=== PATIENT | female | born 2000 ===

== ENCOUNTER 2025-02-19 09:30 | Outpatient (AMB) | payer OTHER, SELFPAY ==
--- NOTE | 2025-02-19 09:05 | A.OFFVIS_ITS ---
Vital Signs 02/19/25 09:38 Height 5 ft 5 in Weight 184 lb BMI 30.6 BP 102/68 Blood Pressure Location Rt brachial Position Sitting Pulse 89 Pulse Source Pulse Oximeter Pulse Oximetry (%) 97 Oxygen Delivery Method Room Air Intake Visit Reasons: Shortness of Breath Allergies No Known Allergies Allergy (Verified 02/19/25 09:40) HPI HPI Shortness of Breath: Details: Ella is a pleasant 24 year old female, never smoker, with no significant past medical history. She was referred by PCP for pulmonary evaluation presenting with dyspnea and chronic cough. The dyspnea and cough have been ongoing for several years, initially noticed at the age of 16. She was evaluated by an ENT specialist who attributed her symptoms to allergies without conducting allergy testing. The patient reports that her cough is often triggered by gastroesophageal reflux, for which she occasionally takes Tums. She experiences a dry cough, which can be exacerbated by lying down or after cleaning her ears. She denies any history of asthma, smoking, or significant secondhand smoke exposure. Her family history is negative for asthma, and she has not experienced recurrent respiratory infections. The patient had a chest x-ray in November, which showed no abnormalities. She has had COVID-19 twice in 2020, with minimal sy mptoms, and reports that her respiratory symptoms have persisted since then. [facility] Social History (Updated 02/19/25 @ 09:40 by Jania Johnson [facility]) Patient Tobacco Use Status: Never used Tobacco Review of Systems Const Denies chills, Denies excessive sweating, Denies fever(s), Denies headache(s) and Denies night sweats Eyes Denies dry eyes, Denies irritation and Denies itchy eyes ENT Reports Normal hearing present, Denies headache(s), Denies nasal congestion, Denies nasal discharge, Denies post nasal drip and Denies sore throat Card Denies chest pain, Denies chest pain at rest, Denies chest pain with activity, Denies claudication, Denies leg edema, Denies orthopnea and Denies paroxysmal nocturnal dyspnea Resp Denies chest congestion, Denies excessive phlegm production, Denies pain on inspiration, Denies pain with cough, Denies stridor and Denies wheezing Musc Denies myalgias Neuro Reports Normal hearing present and Denies headache(s) Endo Denies excessive sweating Neto/Lymph Denies lymphadenopathy Aller/Immun Denies itchy eyes, Denies seasonal rhinorrhea and Denies wheezing Physical Exam Vital Signs: Last Vital Signs Pulse 89 02/19/25 09:38 BP 102/68 02/19/25 09:38 Pulse Ox 97 02/19/25 09:38 Oxygen Delivery Method Room Air 02/19/25 09:38 BMI result Body Mass Index 30.6 Const General: cooperative, healthy appearing, comfortable, no acute distress, well developed and alert Orientation/consciousness: patient oriented x3 Limitations: no limitations HEENT Head: Yes normal to inspection, Yes normocephalic and Yes atraumatic Ears: hearing grossly normal bilaterally and external ears normal Eyes General: appearance normal, both eyes and all related structures Eyelids: Yes eyelids normal Sclerae: sclerae normal EOM: EOMs intact bilaterally Neck Neck: Yes normal visual inspection and Yes no lymphadenopathy Lymphatic: no lymphadenopathy noted Chest Chest palpation & inspection: normal inspection of the chest Resp Effort & Inspection: normal respiratory effort, able to speak in complete sentences, no audible wheezes, no cough, no stridor, not tachypneic, no tripod positioning and no use of accessory muscles Auscultation: clear to auscultation bilaterally Cardio Jugular venous distension: no JVD Rate: regular rate Rhythm: regular rhythm Skin Other: warm, dry General skin exam: no rashes or lesions noted Neuro General: patient oriented x3 Cranial nerves: Yes Normal hearing present Cognition (Neuro): normal cognition Gait exam (Neuro): Normal gait present Extrem General: Yes normal to inspection, Yes capillary refill normal, Yes no clubbing, cyanosis or edema and Yes no pedal edema Psych Appearance: grossly normal and well kempt Speech and movement: Normal speech and movement present and Clear speech present Affect: normal affect Attitude: cooperative Thought process: Normal thought process present Thought content: Normal thought content present Insight: Good insight present (Psych) Judgement: Good judgement present (Psych) Assessment & Plan Assessment & Plan (1) Cough: Code(s): R05.9 - Cough, unspecified Category: Medical (2) Dyspnea on exertion: Code(s): R06.09 - Other forms of dyspnea Category: Medical Plan Will send Ella for PFT to evaluate for possible asthma, as her symptoms suggest this condition. Additionally, the patient is advised to manage her gastroesophageal reflux by avoiding food three hours before bedtime and elevating her head while sleeping. She should also avoid foods that exacerbate reflux, such as acidic foods, chocolate, and caffeine. Prior CXR unremarkable. All questions were answered and patient is in agreement of plan. Will follow up in 6-8 weeks to review the results of the PFT and discuss further management options. Orders: Orders PFT pulmonary function test Today R05.9 - Cough, unspecified Coding Level of Care Code New Pt Level 4 (39364) Diagnoses Cough R05.9 Dyspnea on exertion R06.09
[2025-02-19 09:38] VITALS: BP 102/68; PULSE 89; O2SAT 97; BMI 30.6
--- OUTSIDE RECORDS SUMMARY | 2025-02-19 10:05 | XMS_ITS | Encounter Summary ---
Author Organization [facility] Address [address] [place] [address] Phone Care Team Providers Care Therapeutic Mentor Name Role Phone iNmesh Velazquez MD Primary Care Provider [phone] Encounter Details Date Type Department Care Team (Late st Contact Info) Description 03/16/2017 Conversion Encounter [facility] - [address], [address] [place] [address] Nimesh Velazquez MD [address] [place] [address] Social History Tobacco Use Types Packs/Day Years Used Date Smoking Tobacco: Never Assessed Comments Unknown Sex and Gender Information Value Date Recorded Sex Assigned at Not on file Legal Sex Female 5:40 PM EST Gender Identity Female 10/12/2020 11:59 PM EST Sexual Orientation Not on file documented as of this encounter Plan of Treatment Not on file documented as of this encounter Visit Diagnoses Not on filedocumented in this encounter Care Teams Therapeutic Mentor Relationship Specialty Start Date End Date Nimesh Velazquez MD [address] [place] [address] PCP - General 09/28/16 03/15/23 documented as of this encounter
--- OUTSIDE RECORDS SUMMARY | 2025-02-19 10:05 | XMS_ITS | Data Portability ---
Author Organization [place] [facility], Allergy Address [address] [address] Care Team Providers Care Sorter Lumber Straightener Name Role Phone ANH PETERSEN Primary Care Provider [phone] Assessment Encounter Date Assessment Date Assessment LastModified by Organization Details LastModified Time 11/22/2024 11/22/2024 24-year-old female presents today for swollen tonsils and she describes also symptoms of acid reflux, nasal congestion, some dyspnea in the throat. Tonsils are not obstructive today, 2+ cryptic. I did perform flexible laryngoscopy to more thoroughly evaluate her throat symptoms which showed some mild arytenoid erythema which is nonspecific but can be seen with LPR and allergies. Given the nasal congestion, I did recommend trying an antihistamine and nasal steroid which may help with the tonsil symptoms as well I also recommended salt water gargles. [email or web address] Not available 11/24/2024 17:08:53 Plan of Treatment Reminders Order Date Submit Date Provider Last Modified By Organization Details Last Modified Time Details Appointments Establish ed 15 2024 02:00P Melodie RODRIGUEZ MD Not available Not available Not available Lab None recorded. Referral None recorded. Procedures None recorded. Surgeries None recorded. Imaging None recorded. Medication Orders Flonase Allergy Relief 50 mcg/actua tion nasal spray,didi pension 2024 025 [facility] #[id number], [address] [place], [place], [id number], 11/22/2024 15:03:55 Claritin 10 mg tablet 2024 025 [facility] #[id number], [address], [place], [id number], 11/22/2024 15:03:57 Patient TargetsNo targets recorded. Patient InstructionsNo instructions recorded. Reason for Referral None Reported. Problems Name Problem SNOMED Code Status Onset Date Resolution Date Notes Provider Name and Address Organization Details Recorded Time Allergic rhinitis 46157291 Active 2024 JR RODRIGUEZ MD [address] [place] [address],[place] [address], [place], [address], [facility] - [facility] 15:03:04 Chronic tonsillitis 69540950 Active 2024 JR RODRIGUEZ MD [address] [place] [address], [place], [address], [facility] - [facility] 17:07:32 Gastroesophage al reflux disease without esophagitis 903025991 Active 2024 JR RODRIGUEZ MD [address] [place] [address],[place] [address], [facility] [place], [phone], [facility] [place] 17:07:39 Problem Notes None recorded. Procedures Surgical History Date Name Laterality Status Provider Name and Address Organization Details Recorded Time 11/23/19 25 Fiberoptic Laryngoscopy (Comprehensive) completed JR RODRIGUEZ MD [address] [place] [address],[address], [address], [facility] - [facility] [place] 11/24/2024 17:07:21 Imaging Results None recorded. Procedure Notes None recorded. Medical Equipment None Reported. Allergies No known drug allergies Medications Name Sig Start Date Stop Date Status Note LastModified by Organization Details LastModified Time Claritin 10 mg tablet Take 1 tablet every day by oral route for 30 days. 025 active Not Available Not Available Not Avai lable fluticasone propionate 50 mcg/actuation nasal spray,suspens ion SHAKE LIQUID AND USE 2 SPRAYS IN EACH NOSTRIL EVERY DAY active Not Available Not Available No t Available Vitals Date Recorded Body height Body mass index (BMI) Body weight Provider Name and Address Organization Details Last Updated DateTime 11/22/2024 165.1 cm 30 kg/m2 21616.63 g Kassandra Cardenas [facility] [place] 11/22/2024 14:29:28 Social History None recorded. Functional Status None recorded. Mental Status None recorded. Family History Nothing Reported. Medical History Condition Response Depression Y Anxiety Y Gynecological HistoryNo gynecological history recorded. Obstetrics History GPAL:G 0 P 0 0 0 0 Past Encounters Encounter ID Performer Location Encounter Start Date Encounter Closed Date Diagnosis/Indication Diagnosis SNOMED-CT Code Diagnosis ICD10 Code Diagnosis Note [id number] JR RODRIGUEZ MD [facility] on [address] [place] [address] 11/22/2024 14:27:46 11/22/2024 15:06:24 Allergic rhinitis 45592203 J30.9 Chronic tonsillitis 9097 9004 J35.01 Gastroesop hageal reflux disease without esophagitis 468330900 K21.9 Health Concerns Section Related Observation LastModified by Organization Detai ls LastModified Time None Recorded Concern Status LastModified by Organization Details LastModified Time None Recorded Advance Directives Directive None Recorded Payers Insurance Date Sequence Insurance Name Policy Number Policy Marroquin Covered Member ID Marroquin Member ID Guarantor Name 11/22/2024 1 [facility] INDEMNITY PLAN (PPO) [id number] 1 Randolph Juarez Salomao [id number] Jr Cervantes Notes Date Note Type Note Provider Name and Address Organization Details Recorded Time 11/22/2024 text/html 24 yo F presents forswollen tonsils, tonsil stones - no interventioncan get some trouble breathing after eating thick foods, or after exercising some acid reflux, no meds airflow ok through the nose today some congestion, no allergy testingno ANNAMARIE testingasthma testing negative 2016 no sinus infectionsstrep x 1 blood testing cholesterol high JR RODRIGUEZ MD [address] [place] [address],[place] [address], [place], [address], [place] [facility] 11/24/2024 17:09:18 OBGyn Episode No OBEpisode recorded.
== END 2025-02-19 10:00 | disposition home or self-care (01) ==
LOC: HO.HPSW 09:31
PROVIDERS: PCP Internal Medicine; Referring Provider Nurse Practitioner; Visit Provider Nurse Practitioner Family
DX: R05.9 Cough, unspecified (principal); R06.09 Other forms of dyspnea
CPT/HCPCS: 99204

== ENCOUNTER 2025-04-30 07:51 | Outpatient (REF) | payer OTHER, SELFPAY ==
--- OUTSIDE RECORDS SUMMARY | 2025-04-30 07:53 | XMS_ITS | Encounter Summary ---
Author Organization [facility] Address [address] [place] [address] Phone Care Team Providers Care Machine Plug Shaper Name Role Phone Nimesh Velazquez MD Primary Care Provider [phone] Encounter Details Date Type Department Care Team (Late st Contact Info) Description 03/16/2017 Conversion Encounter [facility] - [address], [address] [place] [address] Nimesh Velazquez MD [address] [place] [address] Social History Tobacco Use Types Packs/Day Years [...] on filedocumented in this encounter Care Teams Machine Plug Shaper Relationship Specialty Start Date End Date Nimesh Velazquez MD [address] [place] [address] PCP - General 09/28/16 03/15/23 documented as of this encounter
--- OUTSIDE RECORDS SUMMARY | 2025-04-30 07:53 | XMS_ITS | Clinical Summary ---
Author Organization [facility] Address [address] [place] [phone] Phone Care Team Providers Care Patternmaker Name Role Phone Unavailable Primary Care Provider Unavailabl e Allergies No known active allergies Medications Adderall XR 15 MG 24 hr capsuleIndications :ADHD (attention deficit hyperactivity disorder), combined type Take 1 capsule (15 mg total) by mouth every morning. 30 capsule 1 Active polyethylene glycol (MiraLax) 17 GM/SCOOP powderIndications: External hemorrhoid Take 17 g by mouth daily. Stir and dissolve powder into 4 to 8 ounces of beverage and then drink. 500 g 3 1 Active tretinoin 0.025 % creamIndications:A cne vulgaris Apply topically nightly. 45 g 2 2 Active Active Problems Problem Noted Date Diagnosed Date Anxiety 10/13/2020 Assessment & Plan (10/13/2020 2:51 PM EST): Having more anxiety and some depression . Not in crisis. Will refer to . Had warm handoff External hemorrhoid 10/13/2020 Assessment & Plan (10/13/2020 2:15 PM EST): If not improving with miralax and triamcinolone will refer to surgery Chronic TMJ pain 08/12/2020 Assessment & Plan (10/13/2020 2:05 PM EST): Has been bothering her and still is will see an oral surgeon Assessment & Plan (08/12/2020 2:46 PM EST): Right sided and had an episode of muscle cramping from stretching that is improved. Will refer to oral surgery for further eval and tx. TMJ click 07/15/2020 Assessment & Plan (07/15/2020 11:29 AM EST): Had one painful episode. Did see dentist. Will try soft diet but if pain returns will refer to oral surgeon. Acne vulgaris 03/23/2018 Assessment & Plan (03/23/2018 11:46 AM EDT): See photo looking for some improvement will cont with wash in shower and add retin a Other developmental disorders of scholastic skil ls 12/23/2015 Overview (03/06/2018): IEP for math Attention-deficit hyperactivity disorder, combin ed type 05/20/2015 Assessment & Plan (10/13/2020 2:52 PM EST): Doing well with adderall xr 15 mg. No side effects happy with the results. Will con't This visit will count also count as one of the medication recheck appointments. Will have f/u in 3 mos Assessment & Plan (08/12/2020 2:47 PM EST): Doing well with adderall and using it daily Assessment & Plan (07/15/2020 11:28 AM EST): Doing well with adderall xr 15 mg no side effects. Will con't at this dose Assessment & Plan (11/07/2018 4:51 PM EDT): Doing very well with current medication adderall xr 15 mg no side effects will cont at current dose Assessment & Plan (05/09/2018 2:26 PM EDT): Doing well with adderall xr 15 mg . This appears to be working well. Will not make any changes. Assessment & Plan (03/23/2018 11:46 AM EDT): Doing well with current medication for school. There might need to be an adjustment once she starts at [employer] [employer] Resolved Problems Problem Noted Date Diagnosed Date Resolved Date Numbness and tingling in left hand 11/30/2018 10/13/2020 Assessment & Plan (11/30/2018 7:09 PM EDT): Unclear etiology. Sounds like there could be some chronic nerve issue. Will refer to ortho. Rest in the mean time Immunizations Immunization Administration Dates Next Due DTaP 10/08/2003, 1,04/08/2000,02/18,1999 H1N1 06/28/2009 HPV, Quadrivalent 12/13/2013,02/16/2013,12/13/19 13 Hep A 03/02/2019 Hep A, Adult 03/02/2019 Hep B, ped/adol 07/08/2000,1999,1999 Hib (PRP-T) 01/09/2001, 0,02/19/2000,12/14 IPV 10/08/2003, 1,02/19/2000,12/14 Influenza 05/08/2009, 8,06/13/2007,06/02 Influenza, injectable, quadr ivalent, preservative free 05/09/2018,05/20/2015,05/24/2014,09/27 Influenza, injectable, trivalent 07/08/2020,05/08 Influenza, intranasal, trivalent 05/13/2011,05/09 MMR 10/13/2004,01/09/2001 Meningococcal Conj (Menactra) MCV4P 01/14/2017,0 12/07/2011 Pneumococcal Conjugate 01/09/2001,2000,07/08/2000,04/08 Tdap 09/27/2019,12/07/2011 Varicella 11/02/2007,10/10/2000 Family History Relation Name Status Comments Father Alive Father: ear inf ections, hearing loss, Cholesterol or lipid elevation Father's Brother Paternal Un ingrid: Cholesterol or lipid elevation Maternal Grandfather Mat Gr- GFather: type 2 diabetes, catarac Maternal Grandmother Mat GMo ther: thyroid disease Mother Alive Mother: allergi es Other 1 allergies, , le arning disability, dyslexia, or Autism Other 2 Cholesterol or lipid elevation Other 3 hypertension, C holesterol or lipid elevation Other 4 hypertension, C holesterol or lipid elevation Other 5 skin cancer, ty pe 2 diabetes Other 6 thyroid disease Other 7 type 2 diabetes Other 8 type 2 diabetes , allergies Other 9 type 2 diabetes , catarac Other 10 Alive allergies Other 11 Alive ear infections, hearing loss, Cholesterol or lipid elevation Paternal Grandfather Pat GFa ther: hypertension, Cholesterol or lipid elevation Paternal Grandmother Pat Gr- GMother: type 2 diabetes Social History Tobacco Use Types Packs/Day Years Used Date Smoking Tobacco: Never Smokeless Tobacco: Never Alcohol Use Standard Drinks/Week Comments No 0 (1 standard drink = 0.6 oz pur e alcohol) Hunger/Food Answer Date Recorded In the last 12 months, did y ou or your family ever eat less than you felt you should because there wasn't enough money for food? No 10/13/2020 Stable Housing Answer Date Recorded Are you worried that in the next 2 months you may not have stable housing? No 10/13/2020 Transportation Concerns Answer Date Rec orded In the last 12 months, have you or your family ever had to go without healthcare because you didn't have a way to get there? No 10/13/2020 Hazards in Home Answer Date Recorded Think about the place you li ve. Do you have problems with any of the following? Pests (mice or roaches), mold, no/not working smoke detectors, water leaks, no window guards. No 2020 Financing Utilities Answer Date Recorde d In the last 12 months, has t he electric, gas, oil, or water [employer] threatened to shut off your services in your home? No 10/13/2020 Safety at Home Answer Date Recorded Are you or your family worried about feeling saf e in your home? No 10/13/2020 Outside Support Answer Date Recorded Do you feel that you need mo re support from other people or programs to help you care for yourself or your family? No 10/13/2020 Understanding Health Concerns Answer Da te Recorded Do you need help understandi ng your or your child's healthcare needs (diagnosis, medications, plan, etc.)? No 10/13/2020 Financing Health Concerns Answer Date R ecorded In the last 12 months, was t here a time when your child needed to see a doctor or get medications or supplies but could not because of cost? No 10/13/2020 Missing School or Work Answer Date Brodie rded Did you or your child miss s chool or work because of a health problem that could have been avoided? No 10/13/2020 Comments No Sex and Gender Information Value Date Recorded Sex Assigned at Not on file Legal Sex Female 5:40 PM EST Gender Identity Female 10/12/2020 11:59 PM EST Sexual Orientation Not on file Last Filed Vital Signs Vital Sign Reading Time Taken Comments Blood Pressure 129/75 10/13/2020 1:36 PM EST Pulse 103 10/13/2020 1:36 PM EST Temperature 36.6 C (97.8 F) 08/12/2020 2:29 PM EST Respiratory Rate 24 03/09/2019 2:35 PM EDT Oxygen Saturation 99% 03/09/2019 2:35 PM EDT Inhaled Oxygen Concentration - - Weight 61.9 kg (136 lb 6.4 oz) 10/13/2020 1:36 P M EST Height 165.7 cm (5' 5.25 ) 10/13/2020 1:36 PM ES T Body Mass Index 22.52 10/13/2020 1:36 PM EST Plan of Treatment Health Maintenance Due Date Last Done Comments Influenza Vaccines (#1) 2025 07/08/20, 05/09/2018, 05/20/2015, Additional history exists COVID-19 Vaccine ( season) 2025 DTaP,Tdap,and Td Vaccines (8 - Td or Tdap) 09/27/2029 09/27/2019, 12/07/2011, 10/08/2003, Additional history exists Hepatitis B Vaccines Completed 07/08/2000, 1999, 1999 HIB Vaccines Completed 01/09/2001, 08/1999, 02/19/2000, Additional history exists Pneumococcal Vaccine Completed 01/09/2001, 10/10/2000, 07/08/2000, Additional history exists IPV Vaccines Completed 10/08/2003, 12/2000, 02/19/2000, Additional history exists MMR Vaccines Completed 10/13/2004, 01/09/2001 Varicella Vaccines Completed 11/02/2007, 10/10/2000 HPV Vaccines Completed 12/13/2013, 02/05, 12/12/2012 Meningococcal Vaccine Completed 01/14/2017, 012 Hepatitis A Vaccines Aged Out 03/02/2019, 03/02/20 19 No longer eligible based on patient's age to complete this topic Men B Vaccine Aged Out No longer elig ible based on patient's age to complete this topic Procedures * Due to [place] law, this organization might not be sharing sensitive test results. Procedure Name Priority Date/Time Associated Diagnosis Comments CHLAMYDIA TRACHOMATIS, AMPLIFIED Routine 10/13/2020 2:45 PM EST Screening for chlamydial disease from Last 3 Months or Most Recently Relevant to Health Maintenance Results * Due to [place] law, this organization might not be sharing sensitive test results. * Chlamydia trachomatis, Amplified (10/13/2020 2:45 PM EST) Chlamydia trachomatis RNA, TMA Not Detected Not Detected 10/14/2020 9:14 AM EST [facility] Urine (Urine, Random (not clean void)) 10/13/2020 2:45 PM EST 10/13/2020 3:44 PM EST us Nimesh Velazquez MD LAB MICROBIOLOGY - GENERAL OR DERABLES Final Result [facility] from Last 3 Months or Most Recently Relevant to Health Maintenance
--- OUTSIDE RECORDS SUMMARY | 2025-04-30 07:53 | XMS_ITS | Clinical Summary ---
Author Organization [facility] Address [address] [place], [place] [id number] Phone Care Team Providers Care Microfilm Technician Name Role Phone Nimesh Velazquez MD Primary Care Provider [phone] Allergies No known active allergies Medications tretinoin (RETIN-A) 0.025 % cream Apply topically. 10/13/2020 Active Immunizations Immunization Administration Dates Next Due DTaP 10/08/2003, 1,04/08/2000,02/18,1999 [id number] FORMULATION 06/28/2009 HPV,quadrivalent 12/13/2013,02/16/2013, 3 Hepatitis A, Adult 03/02/2019 Hepatitis B 07/08/2000,1999,1999 Hib,PRP-T 01/09/2001, 0,02/19/2000,12/14 INFLUENZA, SPLIT VIRUS, TRIV ALENT W/ PRESERVATIVE IM 07/08/2020,05/18/2012 IPV 10/08/2003, 1,02/19/2000,12/14 Influenza Quadrivalent Prese rvative Free IM 05/09/2018,05/20/2015,05/24/2014,09/27 Influenza quadrivalent nasal 05/13/2011,05/28/20 10 Influenza, Unspecified Formulation 05/08,06/14/2008,06/13/2007,06/02 MMR 10/13/2004,01/09/2001 Meningococcal MCV4P 01/14/2017,12/07/2011 Pneumococcal conjugate, PCV 7 01/09/2001 ,10/10/2000,07/08/2000,04/08 Tdap 09/27/2019,12/07/2011 Varicella 11/02/2007,10/10/2000 Family History Medical History Relation Comments Sleep apnea Father Skin cancer Mother Relation Status Comments Father Mother Social History Tobacco Use Types Packs/Day Years Used Date Smoking Tobacco: Never Smokeless Tobacco: Never Alcohol Use Standard Drinks/Week Comments Not Currently 0 (1 standard drink = 0.6 oz pur e alcohol) Education Answer Date Recorded Are you interested in more education? Not on robert e 12/03/2022 Are you concerned about learning? Not on file 12/03/2022 No 12/03/2022 No 12/03/2022 Digital Access Answer Date Recorded No 12/31/2022 No 12/31/2022 No 12/31/2022 Reliable internet access at home? Not on file 12/31/2022 Device with a working camera? Not on file Comments No Sex and Gender Information Value Date Recorded Sex Assigned at Female 09/27/2019 9:52 PM EST Legal Sex Female 8:47 PM EDT Gender Identity Female 09/27/2019 9:52 PM EST Sexual Orientation Straight 09/27/2019 9: 52 PM EST Last Filed Vital Signs Vital Sign Reading Time Taken Comments Blood Pressure 104/66 05/31/2022 9:21 AM EDT Pulse 79 09/27/2019 10:59 PM EST Temperature 36.5 C (97.7 F) 09/27/2019 10:59 PM EST Respiratory Rate 16 09/27/2019 10:59 PM EST Oxygen Saturation 99% 09/27/2019 10:59 PM EST Inhaled Oxygen Concentration - - Weight 63 kg (139 lb) 04/06/2021 2:05 PM EDT Height 165.1 cm (5' 5 ) 04/06/2021 2:05 PM EDT Body Mass Index 23.13 04/06/2021 2:05 PM EDT Plan of Treatment Health Maintenance Due Date Last Done Comments DEPRESSION SCREENING 2011 SMOKING Hx and SMOKELESS TOBACCO SCREENING 2012 HEPATITIS C SCREENING 2017 HIV ONE-TIME SCREENING (18-65 YEARS) 2017 PAP SMEAR 04/06/2024 04/06/2021 INFLUENZA VACCINE (#1) 2025 0, 05/09/2018, 05/20/2015, Additional history exists COVID-19 VACCINE ( season) 2025 Adult Td,Tdap Booster 09/27/2029 09/27/2019, 012 HIB VACCINES Completed 01/09/2001, 08/1999, 02/19/2000, Additional history exists PNEUMOCOCCAL VACCINES (0-49 years) Aged Out 01/09/2001, 10/10/2000, 07/08/2000, Additional history exists No longer eligible based on patient's age to complete this topic HPV VACCINES Completed 12/13/2013, 02/05, 12/12/2012 MENINGOCOCCAL VACCINES (ACWY) Completed 01/14/2017, 12/07/2011 HEPATITIS A VACCINES Aged Out 03/02/2019 No long er eligible based on patient's age to complete this topic MENINGOCOCCAL VACCINES (B) Aged Out N o longer eligible based on patient's age to complete this topic Medical Devices Not on file Procedures Procedure Name Priority Date/Time Associated Diagnosis Comments PAP TEST Routine 04/06/2021 12:00 AM EDT from Last 3 Months or Most Recently Relevant to Health Maintenance Results * Pap Smear (04/06/2021 12:00 AM EDT) 04/06/2021 04/07/2021 9:2 3 AM EDT Narrative SEE NARRATIVE - 04/08/2021 11:32 AM EDT [address] [address] Dietetic Technician Registered: Kassandra Yanez MD BESSEMER BOTTOM MAKER Cytology Report FINAL DIAGNOSIS A. PAP SMEAR (SUREPATH) CE: SPECIMEN ADEQUACY: Satisfactory for evaluation; transformation zone present. INTERPRETATION: NEGATIVE FOR INTRAEPITHELIAL LESION OR MALIGNANCY. Electronically Signed Out By: SARAH Stuart(ASCP) The Pap test is a screening test primarily for squamous cancers and precursors and has associated false-negative and false-positive results. New technologies such as liquid-based preparations may decrease but will not eliminate all false-negative results. Regular sampling and follow-up of unexplained clinical signs and symptoms are recommended to minimize false negative results. CLINICAL HISTORY Date of Last Menstrual Period: 03-31-2021 Other Clinical Conditions: Screening Pap SPECIMEN SOURCE A: PAP SMEAR (SUREPATH) CE Patient Name: JR MARCIAL : 2000 (Age: 20) Sex: F Institution: [facility] Location: [facility] Date of Collection: 04/06/2021 Date of Reported: 04/08/2021 11:32 Results to: Berta Smith MSN, BS Berta Smith [employer] CYTOLOGY ORDERABLES Final Resu lt SEE NARRATIVE from Last 3 Months or Most Recently Relevant to Health Maintenance Insurance [employer] [facility] [employer] [facility] Care Teams Microfilm Technician Relationship Specialty Start Date End Date Nimesh Velazquez MD [address] [place] [address], [address] [place] [address] [email or web address] PCP - General Pediatrics 01/04/19 Additional Source Comments The information contained in this document represents components of the legal health record. It is not the complete legal health record.[facility]
--- NOTE | 2025-04-30 08:00 | PFT_ITS ---
Flows: FEV1: 97 % of predicted at 3.27 L FVC: 103 % of predicted at 4.07 L FEV1/FVC: 81 % Bronchodilator response: Absent Volumes: Total lung capacity: 95 % of predicted at 4.99 L Residual volume: 88 % of predicted at 1.02 L Slow vital capacity: 99 % of predicted at 3.97 L Expiratory reserve volume: 92 % of predicted at 1.23 L Diffusion capacity: Normal Impression: No obstructive or restrictive ventilatory defect. No bronchodilator response. Pulmonary function [facility]. [facility]
[2025-04-30 08:37] VITALS: PULSE 79; O2SAT 98
== END 2025-04-30 07:52 | disposition home or self-care (01) ==
LOC: HO.RESP 07:51
PROVIDERS: Visit Provider Nurse Practitioner Family
DX: R05.9 Cough, unspecified (principal)
CPT/HCPCS: 94010; 94640; 94727; 94729

== ENCOUNTER → 2025-04-30 08:00 | Outpatient (BNV) | payer OTHER, SELFPAY | PROVIDERS: Visit Provider Internal Medicine Pulmonary Disease | DX: R05.9 Cough, unspecified (principal) | CPT/HCPCS: 94060; 94727; 94729 ==

== ENCOUNTER 2025-05-08 11:42 | Outpatient (AMB) | payer OTHER, SELFPAY ==
--- NOTE | 2025-05-08 11:45 | MHC.OFFVIS ---
Vital Signs 05/08/25 11:46 Height 5 ft 5 in Weight 190 lb 2 oz BMI 31.6 BP 98/62 Blood Pressure Location Rt brachial Position Sitting Pulse 81 Pulse Source Pulse Oximeter Pulse Oximetry (%) 97 Oxygen Delivery Method Room Air Intake Visit Reasons: Shortness of breath Allergies No Known Allergies Allergy (Verified 05/08/25 11:50) HPI HPI Shortness of breath: Details: Ella is a pleasant 24 year old female, never smoker, with no significant past medical history. She was initially referred by PCP for pulmonary evaluation presenting with dyspnea and chronic cough. The dyspnea and cough have been ongoing for several years, initially noticed at the age of 16. The patient reports that her cough is often triggered by gastroesophageal reflux, for which she occasionally takes Tums. Has not had further work up through GI, although states she has no discussed with PCP. Encouraged to discuss with PCP. She experiences a dry cough, which can be exacerbated by lying down or after cleaning her ears. She has had COVID-19 twice in 2020, with minimal symptoms, and reports that her respiratory symptoms have persisted since then. Today she continues with dyspnea, cough and wheezing with no triggering factors other than activity. Today she presents to review PFT results. [facility]LY [facility] Social History Patient Tobacco Use Status: Never used Tobacco Review of Systems Const Denies chills, Denies excessive sweating, Denies fever(s), Denies headache(s) and Denies night sweats Eyes Denies dry eyes, Denies irritation and Denies itchy eyes ENT Reports Normal hearing present, Denies headache(s), Denies nasal congestion, Denies nasal discharge, Denies post nasal drip and Denies sore throat Card Denies chest pain, Denies chest pain at rest, Denies chest pain with activity, Denies claudication, Denies leg edema, Reports dyspnea on exertion, Denies orthopnea and Denies paroxysmal nocturnal dyspnea Resp Denies change in phlegm color, Denies chest congestion, Reports cough, Denies hemoptysis, Denies excessive phlegm production, Denies pain on inspiration, Denies pain with cough, Reports dyspnea on exertion, Denies stridor and Reports wheezing Musc Denies myalgias Neuro Reports Normal hearing present and Denies headache(s) Endo Denies excessive sweating Neto/Lymph Denies lymphadenopathy Aller/Immun Denies itchy eyes, Denies seasonal rhinorrhea and Reports wheezing Physical Exam Vital Signs: Last Vital Signs Pulse 81 05/08/25 11:46 BP 98/62 05/08/25 11:46 Pulse Ox 97 05/08/25 11:46 Oxygen Delivery Method Room Air 05/08/25 11:46 BMI result Body Mass Index 31.6 Const General: cooperative, healthy appearing, comfortable, no acute distress, well developed and alert Nutritional Appearance: obese Orientation/consciousness: patient oriented x3 Limitations: no limitations HEENT Head: Yes normal to inspection, Yes normocephalic and Yes atraumatic Ears: hearing grossly normal bilaterally and external ears normal Eyes General: appearance normal, both eyes and all related structures Eyelids: Yes eyelids normal Sclerae: sclerae normal EOM: EOMs intact bilaterally Neck Neck: Yes normal visual inspection and Yes no lymphadenopathy Lymphatic: no lymphadenopathy noted Chest Chest palpation & inspection: normal inspection of the chest Resp Effort & Inspection: normal respiratory effort, able to speak in complete sentences, no audible wheezes, no cough, no stridor, not tachypneic, no tripod positioning and no use of accessory muscles Auscultation: diminished lung sounds Cardio Jugular venous distension: no JVD Rate: regular rate Rhythm: regular rhythm Skin Other: warm, dry General skin exam: no rashes or lesions noted Neuro General: patient oriented x3 Cranial nerves: Yes Normal hearing present Cognition (Neuro): normal cognition Gait exam (Neuro): Normal gait present Extrem General: Yes normal to inspection, Yes capillary refill normal, Yes no clubbing, cyanosis or edema and Yes no pedal edema Psych Appearance: grossly normal and well kempt Speech and movement: Normal speech and movement present and Clear speech present Affect: normal affect Attitude: cooperative Thought process: Normal thought process present Thought content: Normal thought content present Insight: Good insight present (Psych) Judgement: Good judgement present (Psych) Assessment & Plan Assessment & Plan (1) Asthma: Code(s): J45.909 - Unspecified asthma, uncomplicated Category: Medical (2) Cough: Code(s): R05.9 - Cough, unspecified Category: Medical (3) Dyspnea on exertion: Code(s): R06.09 - Other forms of dyspnea Category: Medical Plan Reviewed PFT which did not reveal any obstructive or restrictive defect however slight decrease in FEV1 79% and mild response to bronchodilators in small to medium airways, 11% improvement. Symptoms as well as decreased aeration on respiratory exam, suggestive of asthma with continued dyspnea, wheezing and dry cough, will trial albuterol MDI. Again advised to manage her gastroesophageal reflux by avoiding food three hours before bedtime and elevating her head while sleeping. She should also avoid foods that exacerbate reflux, such as acidic foods, chocolate, and caffeine. Prior CXR unremarkable if symptoms persist may need to consider chest CT to assess for underlying parenchymal conditions. All questions were answered and patient is in agreement of plan. Will follow up in 6-8 weeks or sooner if needed. Medications: New albuterol sulfate 90 mcg/actuation (Ventolin HFA) 1 inh inhalation QID 1 ea 2RF Coding Level of Care Code Est Pt Level 4 (47255) Diagnoses Asthma J45.909 Cough R05.9 Dyspnea on exertion R06.09
[2025-05-08 11:46] VITALS: BP 98/62; PULSE 81; O2SAT 97; BMI 31.6
--- OUTSIDE RECORDS SUMMARY | 2025-05-08 13:18 | XMS_ITS | Clinical Summary ---
Author Organization [facility] Address [address] [place] [address] Phone Care Team Providers Care Putty Glazer Name Role Phone Unavailable Primary Care Provider [...] be an adjustment once she starts at [facility] Resolved Problems Problem Noted Date Diagnosed Date [...] t he electric, gas, oil, or water [employer] threatened to shut off your services in [...] complete this topic Procedures * Due to [place] law, this organization might not be sharing sensitive test results. Procedure Name Priority Date/Time Associated Diagnosis Comments CHLAMYDIA TRACHOMATIS, AMPLIFIED Routine 10/13/2020 2:45 PM EST Screening for chlamydial disease from Last 3 Months or Most Recently Relevant to Health Maintenance Results * Due to [place] law, this organization might not be sharing sensitive test results. * Chlamydia trachomatis, Amplified (10/13/2020 2:45 PM EST) Chlamydia trachomatis RNA, TMA Not Detected Not Detected 10/14/2020 9:14 AM EST [facility] Urine (Urine, Random (not clean void)) 10/13/2020 2:45 PM EST 10/13/2020 3:44 PM EST us Nimesh Velazquez MD LAB MICROBIOLOGY - GENERAL OR DERABLES Final Result [facility] from Last 3 Months or Most Recently Relevant to Health Maintenance
--- OUTSIDE RECORDS SUMMARY | 2025-05-08 13:18 | XMS_ITS | Data Portability ---
Author Organization [place] [facility], Allergy Address [address] [place] [phone] Care Team Providers Care Horticultural Nursery Assistant Name Role Phone TRINITY ANH Primary Care Provider [phone] Assessment Encounter Date Assessment Date Assessment LastModified [...] Organization Details Last Modified Time Details Appointments None recorded. Lab None recorded. Referral None recorded. Procedures None recorded. Surgeries None recorded. Imaging None recorded. Medication Orders Flonase Allergy Relief 50 mcg/actuat ion nasal spray,susp ension 2024 025 [facility] #[id number], [address] [place], [place], [phone], 15:03:55 Claritin 10 mg tablet 2024 025 [place] [id number], [address], [place], [id number], 15:03:57 Patient TargetsNo targets recorded. Patient InstructionsNo instructions recorded. Reason for Referral None Reported. Problems Name Problem SNOMED Code Status Onset Date Resolution Date Notes Provider Name and Address Organization Details Recorded Time Allergic rhinitis 99330708 Active 2024 JR RODRIGUEZ MD [address] [facility], [place], [address], [place] [facility] 15:03:04 Chronic tonsillitis 29340591 Active 2024 JR RODRIGUEZ MD [address] [facility], [place], [address], [facility] 17:07:32 Gastroesophage al reflux disease without esophagitis 669462716 Active 2024 JR RODRIGUEZ MD [address] [facility] [address], [place], [address], [facility] 17:07:39 Problem Notes None recorded. Procedures Surgical History Date Name Laterality Status Provider Name and Address Organization Details Recorded Time 11/23/19 25 Fiberoptic Laryngoscopy (Comprehensive) completed JR RODRIGUEZ MD [address] [address], [place], [address], [facility] 11/24/2024 17:07:21 Imaging Results None recorded. Procedure [...] Updated DateTime 11/22/2024 165.1 cm 30 kg/m2 26550.63 g Kassandra Leach [facility] 11/22/2024 14:29:28 Social History None recorded. Functional Status None recorded. Mental Status None recorded. Family History Nothing Reported. Medical History Condition Response Anxiety Y Depression Y Gynecological HistoryNo gynecological history recorded. Obstetrics History GPAL:G 0 P 0 0 0 0 Past Encounters Encounter ID Performer Location Encounter Start Date Encounter Closed Date Diagnosis/Indication Diagnosis SNOMED-CT Code Diagnosis ICD10 Code Diagnosis IMO Codes Diagnosis Note [id number] JR RODIRGUEZ MD [facility] [address] [place] [address] 11/22/2024 14:27:46 11/22/2024 15:06:24 Allergic rhinitis 40312681 J30.9 Chronic tonsillitis 9097 9004 J35.01 Gastroesop hageal reflux disease without esophagitis 221173153 K21.9 Health Concerns Section Related Observation LastModified by Organization Detai ls LastModified Time None Recorded Concern Status LastModified by Organization Details LastModified Time None Recorded Advance Directives Directive None Recorded Payers Insurance Date Sequence Insurance Name Policy Number Policy Marroquin Covered Member ID Marroquin Member ID Guarantor Name 11/22/2024 1 [facility] INDEMNITY PLAN (PPO) [id number] 1 Randolph Juarez Salomao [id number] Jr Cervantes Notes Date Note Type Note Provider Name and Address Organization Details Recorded Time 11/22/2024 text/html ROS as noted in the HPI 24 yo F presents forswollen tonsils, tonsil stones - no interventioncan get some trouble breathing after eating thick foods, or after exercising some acid reflux, no meds airflow ok through the nose today some congestion, no allergy testingno ANNAMARIE testingasthma testing negative 2016 no sinus infectionsstrep x 1 blood testing cholesterol high JR RODRIGUEZ MD [address] [place] [address], [place], [address], [facility] - [facility] 11/24/2024 17:09:18 OBGyn Episode No OBEpisode recorded.
--- OUTSIDE RECORDS SUMMARY | 2025-05-08 13:18 | XMS_ITS | Encounter Summary ---
Author Organization [facility] Address [address] [place] [address] Phone Care Team Providers Care Corporate Claims Examiner Name Role Phone Nimesh Velazquez MD Primary Care Provider [phone] Encounter Details Date Type Department Care Team (Late st Contact Info) Description 03/16/2017 Conversion Encounter [facility] - [address], [address] [place] [address] Nimesh Velazquez MD [address] [place] [address] Social History Tobacco Use Types Packs/Day Years [...] on filedocumented in this encounter Care Teams Corporate Claims Examiner Relationship Specialty Start Date End Date Nimesh Velazquez MD [address] [place] [address] PCP - General 09/28/16 03/15/23 documented as of this encounter
--- OUTSIDE RECORDS SUMMARY | 2025-05-08 13:19 | XMS_ITS | Clinical Summary ---
Author Organization [facility] Address [address] [place], [place] [phone] Phone Care Team Providers Care Can Machine Operator Name Role Phone Nimesh Velazquez MD Primary Care Provider [phone] Allergies No known active allergies Medications tretinoin (RETIN-A) 0.025 % cream Apply topically. 10/13/2020 Active Immunizations Immunization Administration Dates Next Due DTaP 10/08/2003, 1,04/08/2000,02/18,1999 [id number] FORMULATION 06/28/2009 HPV,quadrivalent 12/13/2013,02/16/2013, 3 Hepatitis A, [...] SEE NARRATIVE - 04/08/2021 11:32 AM EDT [address] [address] Cover Cutter: Kassandra Yanez MD BUTCHER APPRENTICE Cytology Report FINAL DIAGNOSIS A. PAP SMEAR [...] : 2000 (Age: 20) Sex: F Institution: [facility] Location: [facility] Date of Collection: 04/06/2021 Date of Reported: 04/08/2021 11:32 Results to: Berta Smith MSN, BS Berta Smith CLOTH PAINTER CYTOLOGY ORDERABLES Final Resu lt SEE NARRATIVE from Last 3 Months or Most Recently Relevant to Health Maintenance Insurance [employer] Alan [facility] CHOICE [employer] [facility] CHOICE Care Teams Can Machine Operator Relationship Specialty Start Date End Date Nimesh Velazquez MD [address] [place] [address], [address] [place] [address] [email or web address] PCP - General Pediatrics 01/04/19 Additional Source Comments The information contained in this document represents components of the legal health record. It is not the complete legal health record.[facility]
== END 2025-05-08 12:07 | disposition home or self-care (01) ==
LOC: HO.HPSW 11:43
PROVIDERS: PCP Internal Medicine; Visit Provider Nurse Practitioner Family
DX: J45.909 Unspecified asthma, uncomplicated (principal); R05.9 Cough, unspecified; R06.09 Other forms of dyspnea
CPT/HCPCS: 99214

== ENCOUNTER 2025-08-06 09:59 | Outpatient (AMB) | payer OTHER, SELFPAY ==
--- NOTE | 2025-08-06 10:01 | MHC.OFFVIS ---
Vital Signs 08/06/25 10:02 Height 5 ft 5 in Weight 195 lb 4 oz BMI 32.5 BP 104/60 Blood Pressure Location Rt brachial Position Sitting Pulse 73 Pulse Source Pulse Oximeter Pulse Oximetry (%) 97 Oxygen Delivery Method Room Air Intake Visit Reasons: Shortness of breath Allergies No Known Allergies Allergy (Verified 08/06/25 10:05) HPI Comments Details: Ella is a pleasant 24 year old female, never smoker, with no significant past medical history. She was initially referred by PCP for pulmonary evaluation presenting with dyspnea and chronic cough. The dyspnea and cough have been ongoing for several years, initially noticed at the age of 16. The patient reports that her cough is often triggered by gastroesophageal reflux, for which she occasionally takes Tums. She was prescribed omeprazole for suspected acid reflux about two months ago, which she takes at bedtime, but reports minimal improvement of about 20% in her cough. The cough occurs regardless of her environment and is associated with occasional heartburn, shortness of breath, and a sensation of chest tightness, but no wheezing. She has been using an albuterol inhaler intermittently, which provides variable relief but does not completely resolve the cough. Previous pulmonary function testing indicated small airways disease, and a chest x-ray in November was normal. She has not had any recent urgent care visits or illnesses. Pulmonology History - Persistent dry cough. - Dyspnea with chest tightness. - History of small airways disease based on prior pulmonary function testing. - Trial of omeprazole for suspected GERD-related cough with minimal benefit. - Use of albuterol inhaler with variable but incomplete relief of symptoms. - Normal chest x-ray in November. Results - Imaging: Chest x-ray from November was normal. - Pulmonary Function Tests: Prior breathing test showed small airways disease. [facility] Social History Patient Tobacco Use Status: Never used Tobacco Review of Systems Narrative Const Denies chills, Denies excessive sweating, Denies fever(s), Denies headache(s) and Denies night sweats Eyes Denies dry eyes, Denies irritation and Denies itchy eyes ENT Reports Normal hearing present, Denies headache(s), Denies nasal congestion, Denies nasal discharge, Denies post nasal drip and Denies sore throat Card Denies chest pain, Denies chest pain at rest, Denies chest pain with activity, Denies claudication, Denies leg edema, Reports dyspnea on exertion, Denies orthopnea and Denies paroxysmal nocturnal dyspnea Resp Denies change in phlegm color, Denies chest congestion, Reports cough, Denies hemoptysis, Denies excessive phlegm production, Denies pain on inspiration, Denies pain with cough, Reports dyspnea on exertion and Denies stridor Musc Denies myalgias Neuro Reports Normal hearing present and Denies headache(s) Endo Denies excessive sweating Neto/Lymph Denies lymphadenopathy Aller/Immun Denies itchy eyes and Denies seasonal rhinorrhea Physical Exam Exam Exam: Vital Signs: Last Vital Signs Pulse 73 08/06/25 10:02 BP 104/60 08/06/25 10:02 Pulse Ox 97 08/06/25 10:02 Oxygen Delivery Method Room Air 08/06/25 10:02 BMI result Body Mass Index 32.5 Const General: cooperative, healthy appearing, comfortable, no acute distress, well developed and alert Nutritional Appearance: obese Orientation/consciousness: patient oriented x3 Limitations: no limitations HEENT Head: Yes normal to inspection, Yes normocephalic and Yes atraumatic Ears: hearing grossly normal bilaterally and external ears normal Eyes General: appearance normal, both eyes and all related structures Eyelids: Yes eyelids normal Sclerae: sclerae normal EOM: EOMs intact bilaterally Neck Neck: Yes normal visual inspection and Yes no lymphadenopathy Lymphatic: no lymphadenopathy noted Chest Chest palpation & inspection: normal inspection of the chest Resp Effort & Inspection: normal respiratory effort, able to speak in complete sentences, no audible wheezes, no cough, no stridor, not tachypneic, no tripod positioning and no use of accessory muscles Auscultation: diminished lung sounds Cardio Jugular venous distension: no JVD Rate: regular rate Rhythm: regular rhythm Skin Other: warm, dry General skin exam: no rashes or lesions noted Neuro General: patient oriented x3 Cranial nerves: Yes Normal hearing present Cognition (Neuro): normal cognition Gait exam (Neuro): Normal gait present Extrem General: Yes normal to inspection, Yes capillary refill normal, Yes no clubbing, cyanosis or edema and Yes no pedal edema Psych Appearance: grossly normal and well kempt Speech and movement: Normal speech and movement present and Clear speech present Affect: normal affect Attitude: cooperative Thought process: Normal thought process present Thought content: Normal thought content present Insight: Good insight present (Psych) Judgement: Good judgement present (Psych) Assessment & Plan Assessment & Plan (1) Chronic cough: Code(s): R05.3 - Chronic cough Category: Medical (2) Asthma: Code(s): J45.909 - Unspecified asthma, uncomplicated Category: Medical Plan Discussed with the patient that her persistent cough and shortness of breath are likely related to asthma, as suggested by her prior breathing test which showed small airways disease. Explained that while her previous chest x-ray was normal, a CT scan provides a more detailed image of the lungs and could reveal an underlying parenchymal condition such as inflammation contributing to her cough. We discussed her upcoming change in insurance coverage and the potential cost of the CT scan; she agreed to proceed after checking with her insurance, with a repeat chest x-ray as an alternative if needed. Recommended starting a daily inhaler, Arnuity. Explained that it may take one to two weeks to notice improvement and counseled her on the importance of rinsing her mouth after each use to prevent oral thrush, describing its symptoms. We agreed to a one-month supply initially; if she finds it helpful, she should call for a 90-day prescription. Advised her to call if her breathing worsens or if her albuterol inhaler does not provide relief. We planned a follow-up visit before the end of September to review the CT scan results and her progress on the new medication, accommodating her insurance timeline. All questions were answered and patient is in agreement of plan. Patient Instructions - The order for your chest CT scan has been placed. You will be contacted to schedule it. It is recommended that you call your insurance company to understand the cost before the procedure. - A prescription for Arnuity inhaler has been sent to [facility] in [place]. Inhale one puff once a day. - It is very important to rinse your mouth out with water after using the Arnuity inhaler to prevent a mouth infection called thrush. - It may take a week or two to notice improvement from the new inhaler. If you find that it is helping, please call our office to request a 90-day supply. - Continue to use your albuterol inhaler as needed for sudden breathing problems. - Please call our office if you become sick, your breathing worsens, or if your albuterol inhaler stops helping. - Plan to follow up in our office at the end of September to go over your test results and see how you are doing on the new medication. Patient was informed and verbally consented to the use of an ambient scribe for clinic note documentation during this visit. Orders: Orders CT chest wo IV con Today R05.3 - Chronic cough Medications: New fluticasone furoate 100 mcg/actuation (Arnuity Ellipta) 1 inh inhalation DAILY 30 ea 2RF Coding Level of Care Code Est Pt Level 4 (12415) Diagnoses Chronic cough R05.3 Asthma J45.909
[2025-08-06 10:02] VITALS: BP 104/60; PULSE 73; O2SAT 97; BMI 32.5
--- OUTSIDE RECORDS SUMMARY | 2025-08-06 13:03 | XMS_ITS | Clinical Summary ---
Author Organization [facility] Address [address] [place] [id number] Phone Care Team Providers Care Tool Coordinator Name Role Phone Unavailable Primary Care Provider [...] be an adjustment once she starts at [facility] Resolved Problems Problem Noted Date Diagnosed Date [...] t he electric, gas, oil, or water [employer] threatened to shut off your services in [...] complete this topic Procedures * Due to [place] JMEA law, this organization might not be sharing sensitive test results. Procedure Name Priority Date/Time Associated Diagnosis Comments CHLAMYDIA TRACHOMATIS, AMPLIFIED Routine 10/13/2020 2:45 PM EST Screening for chlamydial disease from Last 3 Months or Most Recently Relevant to Health Maintenance Results * Due to [place] JMEA law, this organization might not be sharing sensitive test results. * Chlamydia trachomatis, Amplified (10/13/2020 2:45 PM EST) Chlamydia trachomatis RNA, TMA Not Detected Not Detected 10/14/2020 9:14 AM EST [facility] Urine (Urine, Random (not clean void)) 10/13/2020 2:45 PM EST 10/13/2020 3:44 PM EST us Nimesh Velazquez MD LAB MICROBIOLOGY - GENERAL OR DERABLES Final Result [facility] from Last 3 Months or Most Recently Relevant to Health Maintenance
--- OUTSIDE RECORDS SUMMARY | 2025-08-06 13:03 | XMS_ITS | Clinical Summary ---
Author Organization [facility] Address [address] [place], [place] [id number] Phone Care Team Providers Care Food Adviser Name Role Phone Nimesh Velazquez MD Primary Care Provider [phone] Allergies No known active allergies Medications tretinoin (RETIN-A) 0.025 % cream Apply topically. 10/13/2020 Active Immunizations Immunization Administration Dates Next Due DTaP 10/08/2003, 1,04/08/2000,02/18,1999 [id number] FORMULATION 06/28/2009 HPV,quadrivalent 12/13/2013,02/16/2013, 3 Hepatitis A, [...] 05/09/2018, 05/20/2015, Additional history exists COVID-19 VACCINE (2024- season) 2025 Adult Td,Tdap Booster 09/27/2029 09/27/2019, [...] SEE NARRATIVE - 04/08/2021 11:32 AM EDT [address] [address] Equipment Or Machinery Cleaner: Kassandra Yanez MD FOOD PRODUCTION ASSOCIATE Cytology Report FINAL DIAGNOSIS A. PAP SMEAR [...] : 2000 (Age: 20) Sex: F Institution: [facility] Location: [facility] Date of Collection: 04/06/2021 Date of Reported: 04/08/2021 11:32 Results to: Berta Smith MSN, BS Berta Smith TITLE SEARCHER CYTOLOGY ORDERABLES Final Resu lt SEE NARRATIVE from Last 3 Months or Most Recently Relevant to Health Maintenance Insurance Group 47 [employer] CHOICE Group 47 [employer] CHOICE [employer] [place] [facility] [place] [facility] CHOICE Alan [facility] [employer] [facility] CHOICE Care Teams Food Adviser Relationship Specialty Start Date End Date Nimesh Velazquez MD [address] [place] [address], [address] [place] [address] [email or web address] PCP - General Pediatrics 01/04/19 Additional Source Comments The information contained in this document represents components of the legal health record. It is not the complete legal health record.[facility]
--- OUTSIDE RECORDS SUMMARY | 2025-08-06 13:03 | XMS_ITS | Encounter Summary ---
Author Organization [facility] Address [address] [place] [id number] Phone Care Team Providers Care Binder Cutter Hand Name Role Phone Nimesh Velazquez MD Primary Care Provider [phone] Encounter Details Date Type Department Care Team (Late st Contact Info) Description 03/16/2017 Conversion Encounter [facility] - [address], [address] [place] [address] Nimesh Velazquez MD [address] [place] [address] Social History Tobacco Use Types Packs/Day Years [...] on filedocumented in this encounter Care Teams Binder Cutter Hand Relationship Specialty Start Date End Date Nimesh Velazquez MD [address] [place] [address] PCP - General 09/28/16 03/15/23 documented as of this encounter
== END 2025-08-06 10:26 | disposition home or self-care (01) ==
PROVIDERS: PCP Internal Medicine; Visit Provider Nurse Practitioner Family
DX: R05.3 Chronic cough (principal); J45.909 Unspecified asthma, uncomplicated
CPT/HCPCS: 99214